=== PATIENT | male | born 1965 | race Caucasian/White ===

== ENCOUNTER 2016-07-19 20:26 | Emergency (ER) | payer SELFPAY ==
--- NOTE | 2016-07-31 21:14 | ER ---
ADMIT: 07/19/2016 RM/LOC: ER [facility] MR#: [id number] [address] [id number] CESAR GOMEZ [address] [place] [address] Emergency Room Report SEX: M AGE: 51 : 1965 DATE: 07/19/2016 ADDENDUM: CHIEF COMPLAINT: Alcohol ingestion. HISTORY OF PRESENT ILLNESS: This is a 51-year-old, who has been sober for the last 6 months and then he fell off a wagon and has been drinking a half gallon of vodka daily for the last 7 days. He wanted to go to [facility], but he was worried that he was too intoxicated to go there. So, he came to the ER. CBC is normal except for hemoglobin of 13.4. Chemistries normal except for potassium of 3.3. His glucose is 150. His EtOH is 237. He is going to be discharged from here and going to [facility]. They said they have a bed available for him. CLINICAL IMPRESSION: Alcoholism, seeks detox. ADAN Parker / Roger Oliva MD / modl JOB #: [id number] CC: Roger Oliva MD, Attending Physician Jaci Ballard MD, Family Physician
== END 2016-07-19 23:00 | disposition home or self-care (01) ==
LOC: ER 20:26
DX: F10.20 Alcohol dependence, uncomplicated (principal); I10 Essential (primary) hypertension; F17.210 Nicotine dependence, cigarettes, uncomplicated; Z79.899 Other long term (current) drug therapy; Z98.890 Other specified postprocedural states

== ENCOUNTER 2016-07-31 10:38 | Inpatient (IN) | payer OTHER ==
[~2016-07-31] VITALS: Ht 172.7 cm; Wt 78.9 kg
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
--- NOTE | ~2016-07-31 | INDIVTXPLN ---
"PATIENT: CESAR GOMEZ | | [facility] UNIT #: [id number] | [address] AGE/SEX: 51 M : 69 | [address] | [place] [address] ADMIT/REG DATE: 07/31/16 | [facility] | Individualized Treatment Plan Date: 08/14/16 Problem Statement/Issue Identified: Client needs to identify relapse warning signs and develop a plan to deal with them as they arise. Goal: Client will learn how to identify relapse triggers and make a plan of how to avoid them. Objectives/Activities to achieve goal: 1. Client is to interview people on how they got into recovery and about relapse triggers, and process it with counselor. Due Date:08/21/16 Complete: Incomplete: 2. Client is to do a collage about his recovery and life and process it with counselor. Due Date:08/21/16 Complete: Incomplete: 3. Client is to write out what One Day at a Time means to him, and process it with counselor. Due Date:08/01/16 Complete: Incomplete: Client signature Date Counselor signature Date Outcome/Measurement of Progress Towards Goal: Counselor's signature Date "
--- NOTE | ~2016-07-31 | INDIVTXPLN ---
"PATIENT: CESAR GOMEZ | | [facility] UNIT #: [id number] | [address] AGE/SEX: 51 M : 69 | [address] | [place] [address] ADMIT/REG DATE: 07/31/16 | ROOM: [facility] LOC: ADTC | ADTC | Individualized Treatment Plan Date: 08/06/16 Problem Statement/Issue Identified: Client needs to get back in touch with basics of recovery as he is relapsed after several treatment attempts, as well as while living in the long-term house. Goal: Client will take time to gain insight to Step 1, which will help him get back into recovery, as well as to learn to reach out to men in recovery and attend AA/NA meetings. Objectives/Activities to achieve goal: 1. Client is to complete the How to Get Started packet and process it with counselor, and selected pages in group. Due Date:08/11/16 Complete: Incomplete: 2. Client is to complete Step 1, process it with counselor and selected pages in group. Due Date:08/14/16 Complete: Incomplete: 3. Client is to attend AA/NA meetings, ask for and get at least 5 names and numbers of men in recovery, and share that list with counselor. Due Date:08/21/16 Complete: Incomplete: Client signature Date Counselor signature Date Outcome/Measurement of Progress Towards Goal: Counselor's signature Date "
--- NOTE | ~2016-07-31 | CLPRLASSUM ---
PATIENT: CESAR GOMEZ | | [facility] UNIT #: [id number] | [address] AGE/SEX: 51 M : 69 | [address] | [place] [address] ADMIT/REG DATE: 07/31/16 | ROOM: [facility] LOC: ADTC | ADTC | Client Problem List/Assessment Summary Date: 08/06/16 Problems identified by the client: Client was living in the [facility], and drank for 5 days. He believed he needed to come back to a treatment program, so he can try to get back in. Problems identified by significant others: Same Client's Strengths: Client identified his strengths as: Honesty, hardworking and loyal. Problem List: T Client needs to get back in touch with the basics of recovery as he relapsed after several treatment attempts, including having 9 years, at one point. T Client does not "reach-out to others for help" and instead continued to use alcohol. T Client needs to identify relapse warning signs and develop a plan to deal with them as they arise. Code Claire: T: to be addressed during course of treatment O: problem noted, expected to resolve itself with abstinence--specific tx plan not required R: problem noted, will be referred upon discharge PRIMARY COUNSELOR: KATIE Howard
--- NOTE | ~2016-07-31 | TXPLANREV ---
"PATIENT: CESAR GOMEZ | | [facility] UNIT #: [id number] | [address] AGE/SEX: 51 M : 69 | [address] | [place] [address] ADMIT/REG DATE: 07/31/16 | [facility] ADTC | Treatment Plan/Staffing Review Date: 08/13/16 Treatment plan was reviewed and determined appropriate as written: Yes Treatment plan was reviewed and the following changes/addition/deletions are necessary: Client has completed Step 1 and will now begin working on relapse prevention. Discharge plans were reviewed and determined appropriate as previously documented: Yes Discharge plans were reviewed and determined to be as follows: Client is waiting to get back into the [facility]. 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 Other pertinent issues discussed during this staffing review include: None at this time. Staff Present: Dina Medley PRIMARY COUNSELOR: KATIE Howard Client Signature Counselor Signature Date Time "
--- NOTE | ~2016-07-31 | TXPLANREV ---
"PATIENT: CESAR GOMEZ | | [facility] UNIT #: [id number] | [address] AGE/SEX: 51 M : 69 | [address] | [place] [address] ADMIT/REG DATE: 07/31/16 | [facility] | Treatment Plan/Staffing Review Date: 08/19/16 Treatment plan was reviewed and determined appropriate as written: Yes Treatment plan was reviewed and the following changes/addition/deletions are necessary: Client is finishing up with his relapse prevention assignments. 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 Other pertinent issues discussed during this staffing review include: None at this time. Staff Present: Dina Medley PRIMARY COUNSELOR: KATIE Howard Client Signature Counselor Signature Date Time "
--- NOTE | 2016-07-31 12:50 | NUR ---
ADMISSION NOTE Client is a 51 y/o, male referred to treatment by [facility] and brought here today from their Crisis Stabilization Unit bu CSU staff. Client had been in the CSU for 12 days. Client resides in [place], most recently at a senior care house. Client states medical allergy to codeine and brings home medications with him; these were packaged for storage at the pharmacy. Client states DOC is alcohol, last used 12 days ago, when client reports drinking around a half-gallon per day for 4-5 days. Client does not anticipate any family group participation from his family. Client was searched, no contraband found. Client did turn in a cell phone and a small pair of scissors, which were place in the locked storage at the tech station. Rights/Responsibilities: Copy given and explained to client. Signed and accepted by client. Client oriented to physical lay out of the ADTC unit, given Big Book and admission packet. A Chalino was assigned. Aj
--- NOTE | 2016-07-31 15:04 | NUR ---
Tech Note: Client partlicipated in light stretching for morning exercise and went on an outdoor walk in the afternoon. Client stated that he is working on, "Relapse Prevention."
--- NOTE | 2016-07-31 15:57 | NUR ---
INITIAL SESSION 1 HR: Clt was oriented to tx plans, schedules and what to expect. He stated he was living at the and went on a 5 day binge. He has bene to SOS tx 3 times in the past couple years and here a few yrs back. He stated he struggles with reading and writing, so heard to do the best he can and we'll get anum the rest.
--- NOTE | 2016-07-31 22:50 | NUR ---
Tech note : Client did not participate in programming as he was finishing his paperwork. He did attend the AA meeting was checked into his room, seen by the and gave his first intro.
--- NOTE | 2016-08-01 05:12 | NUR ---
Bed note : Client was motionless with eyes closed at all bed checks.
--- NOTE | 2016-08-01 10:07 | NUR ---
Tech Notes: Client is working on Getting started
--- NOTE | 2016-08-01 12:13 | NUR ---
PEER REVIEW 22:1/1.5 HR: Client and peers participated in peer review. Client did provide feedback for a couple of the peers reviewed but refused on one, stating that he had not so much as talked to the peer or been around him as client came in to treatment yesterday.
--- NOTE | 2016-08-01 12:47 | NUR ---
Education note: Client attended education by [facility]
--- NOTE | 2016-08-01 14:40 | NUR ---
FAMILY CONTACT: Gilbert's nephew was contacted. He stated gilbert has tons of grief, resentments and anger to work thru, along with hurt and sadness. He stated gilbert's Dad killed himself, then left the ranch to him, of which they lost, then he had 2 women who cheated on him w/ family members, and gilbert has been covering it w/ drugs and alcohol for several yrs. Nephew stated he will participate in family edu.
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
--- NOTE | 2016-08-01 17:34 | NUR ---
SPIRITUaL EDUCATION 1 HR. Today we oriented newcomers and the activity was reading and putting on presentations on portions of TOWARDS SPIRITUALITY.
--- NOTE | 2016-08-01 22:13 | NUR ---
Tech note : Client went for a walk and worked on some crafts. Client celebrated a tech's birthday and attended an onsite NA meeting.
--- NOTE | 2016-08-02 04:54 | NUR ---
Bed note: Client was moitionless with eyes closed at all bed checks.
--- NOTE | 2016-08-02 11:56 | NUR ---
Group 1.5 Hr Rtio 2:20/Topics today were orientating a new client to group rules and goals. Relapse prevention was also a topic. Client shared how he could relateto different relapse triggers and what he needed to do to void that.
--- NOTE | 2016-08-02 14:27 | NUR ---
Tech Note: Client attended Spiritual Enrichment in the morning and went for an outdoor walk in the afternoon. Client stated that he is working on, "How to Get Started in Treatment."
--- NOTE | 2016-08-02 15:49 | NUR ---
Education 1 Hour: Client heard from a recovery speaker who shared his experience, strength and hope.
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
--- NOTE | 2016-08-02 18:30 | NUR ---
Education: 1 Hour. Clients watched Picking up the Pieces for education.
--- NOTE | 2016-08-02 23:14 | NUR ---
tech note: client went on walk for recreation,participated in Guided Meditation & attended onsite AA meeting. SE: AA.
--- NOTE | 2016-08-03 04:06 | NUR ---
Bed note: Client was moitionless with eyes closed at all bed checks.
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
--- NOTE | 2016-08-03 13:00 | NUR ---
PEER REVIEWS 1 HR: Clt participated in peer review process and was able to give open and honest feedback to those receiving a review.
--- NOTE | 2016-08-03 13:26 | NUR ---
Tech Note: Client went on group walk for recreation. Clt is working on Getting Started.
--- NOTE | 2016-08-03 22:59 | NUR ---
TECH NOTE: Client participated in reading guidelines, watched tv/movies. SE: walk
--- NOTE | 2016-08-04 04:46 | NUR ---
BED NOTE: Client was in bed, motionless with eyes closed all three bed checks.
--- NOTE | 2016-08-04 09:21 | NUR ---
IS 1 HR: We discussed past trauma issues, including the suicide of his Dad, then the loss of the family ranch. Clt advised he did EMDR at [facility] so does not think he needs more therapy on it. He stated he spent 9 yrs in recovery and learned acceptance and understanding. What clt primarily wants to work on is stopping his self-sabotaging. He will also be given some type of step 1 work, altho he has a learning disability and struggles with reading and writing.
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
--- NOTE | 2016-08-04 16:27 | NUR ---
Tech Note: Client is working on the Convene and had a visitor.
--- NOTE | 2016-08-04 23:33 | NUR ---
TECH NOTE: Client played Catch Phrase for REC, attended off site AA meeting, and watched TV/movies. SE: visits
--- NOTE | 2016-08-05 04:16 | NUR ---
Bed Note: Clt lay motionless in bed with eyes closed showing no distress at all bed checks.
--- NOTE | 2016-08-05 15:56 | NUR ---
Tech Note: Client participated in Big Book Study and stated that he is working on Step One.
--- NOTE | 2016-08-05 22:36 | NUR ---
Client attended the A.A.Panel and participated in Community [facility]. SE: All Day
--- NOTE | 2016-08-06 03:58 | NUR ---
BED NOTE: Client was in bed, and motionless at all three bed checks except for last check he acknoledged me.
--- NOTE | 2016-08-06 10:03 | NUR ---
Tech notes: Client is working on Step 1.
--- NOTE | 2016-08-06 11:17 | NUR ---
AM Group 1.5hr/ 21:2 Clients all read The Wall an allegory and discussed how it related to the 12 steps/recovery. Each client jenn and shared their wall.
--- NOTE | 2016-08-06 13:59 | NUR ---
Educational note: Client attended speaker for educationCyo
--- NOTE | 2016-08-06 16:00 | NUR ---
RECOVERY 101 1 HR/ Clients all filled out consequences list to look at each chemical they have ever used and how many consequences were experiences with each drug. Many shared what they learned from this and their top 3 consequences, they also discussed early stage symptoms of their addiction. Counselor asked the group what would be a definition that includes all stages and this was discussed as well at stages of Denial, Anger, Compliance/defiance, admittance, acceptance and Surrender.
--- NOTE | 2016-08-06 20:37 | NUR ---
Education: 1 Hour. Client attended lecture on "Adult Children of Alcoholics" presented by staff.
--- NOTE | 2016-08-06 22:52 | NUR ---
Tech Note: Client played a game for rec and attended the on unit N.A.Meeting. SE:_A.A.Panel
--- NOTE | 2016-08-07 04:12 | NUR ---
Bed Note: Client was in bed, and motionless at all three bed checks.
--- NOTE | 2016-08-07 13:07 | NUR ---
Tech Note: Nutritional Services presented information for the 1:00 speaker meeting. Client is working on Step 1.
--- NOTE | 2016-08-07 15:16 | NUR ---
A.M. 1.5 hr res group/ratio 1:10/ Group heard a getting started, a feelings letter, vent letter and a womens journal assignment. This client was attentive but mostly quiet.
--- NOTE | 2016-08-07 16:24 | NUR ---
Relapse Prevention, 05/18, 1.0 hours, Client attended and actively participated in relapse prevention education which focused on top 5 relapse triggers and how to avoid them.
--- NOTE | 2016-08-07 17:32 | NUR ---
Education Note: Topic was "[place] From Shame" presented by Nida.
--- NOTE | 2016-08-07 22:46 | NUR ---
TECH NOTE: Client did crafts/beads for REC and attended on site AA meeting. SE: acceptance to [facility]
--- NOTE | 2016-08-08 04:00 | NUR ---
BED NOTE: Client was in bed, motionless with eyes closed all bed checks.
--- NOTE | 2016-08-08 10:42 | NUR ---
Tech notes: Client is working on Step 1 and mtg with [place]
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
--- NOTE | 2016-08-08 15:59 | NUR ---
Education 1 Hour: Client watched the video, "Marijuana" by Ovidio Vallejo.
--- NOTE | 2016-08-08 16:39 | NUR ---
IS 1 HR: Processed clt's BPS and his How ot Get Started pkts. He struggles with dyslexia, so it was hard to read, but in discussion, learned mart's Dad got poisoned when clt was 9, then committed suicide when clt was 14. He advised he has come to terms w/ it, but it was hard on him, and especially after they lost the family ranch. Mom did go to nursing school and became an RN, until she, too got ill with COPD and , as well. In his HtGS pkt, he identified being happy, sad and mad as a teen, due to his Dad's illness and . Then as an adult when his cheated on him w/ his cousin. Gilbert is working on Step 1.
--- NOTE | 2016-08-08 17:24 | NUR ---
SPIRITUAL EDUCATION; Client's took TOWARD SPIRITUALITY BOOKS again this week and improved their presentations took on new participants to replace those who weren't here this week, and presented their refined skits to those staff available to watch. Excellent presentations!
--- NOTE | 2016-08-08 19:04 | NUR ---
Education 1HR: Clt attended lecture given by counselor on boundaries.
--- NOTE | 2016-08-08 22:03 | NUR ---
Tech note : Client went for a long walk for rec and attended an onsite NA meeting. SE: Meeting with counselor
--- NOTE | 2016-08-09 04:03 | NUR ---
Bed note: Client was in bed motionless, with eyes closed at all bed checks.
--- NOTE | 2016-08-09 11:30 | NUR ---
AM GRP 1.5 HRS, Ratio 1:10/ Clt participated in grp discussion on various topics. The majority of grp was on a male peer who often manipulates the grp. This clt sat mostly quiet for that period of time, then when newcomers shared, he did offer some feedback.
--- NOTE | 2016-08-09 13:49 | NUR ---
FAMILY EDUCATION 3 hrs. Client had no family this night but took part in the discussion on the disease concept and the progression and consequences.
--- NOTE | 2016-08-09 15:18 | NUR ---
Tech Note: Client participated in Spiritual Enrichment in the morning and went for an outdoor walk in the afternoon.client stated that he is wroking on Step One.
--- NOTE | 2016-08-09 15:39 | NUR ---
Education 1 Hour: Client watched the video, "Doing a 4th and 5th Step" by Arcelia Bourgeois.
--- NOTE | 2016-08-09 19:10 | NUR ---
Education 1HR: Clt watched half of video "Pleasures Unwoven" with staff present.
--- NOTE | 2016-08-09 23:00 | NUR ---
Tech Note; Clt played a game for rec, attended GM and onsite AA mtg. SE was all day
--- NOTE | 2016-08-10 04:22 | NUR ---
Bed Note: Clt lay motionless in bed with eyes closed showing no distress at all bed checks.
--- NOTE | 2016-08-10 12:56 | NUR ---
Tech Note: Client is working on Step 1.
--- NOTE | 2016-08-10 13:00 | NUR ---
PEER REVIEWS 1 HR: Clt participated in peer reviews and took a risk to give open and honest feedback to those receiving a review.
--- NOTE | 2016-08-10 13:15 | NUR ---
Morning Group, /12 ratio, 1.5 hours, Client attended and actively participated in group. Client offered feedback to peers.
--- NOTE | 2016-08-10 13:58 | HP ---
ADMIT: 07/31/2016 RM/LOC: [facility] MR#: [id number] [facility] [address] [place] [id number] CESAR GOMEZ [address] [place] [address] History and Physical SEX: M AGE: 51 : 1965 DATE OF SERVICE: CHIEF COMPLAINT/CLINICAL HISTORY: Alcohol and drug problem with recent relapse on alcohol and meth after having completed the [facility] three times in the last nine months. The patient notes that this is his second time in treatment here at the [facility]. He notes, he initially came to treatment in September of 2002. He was in treatment at the [facility] for 10/08/2002 through 10/29/2002. He completed treatment and then was sober for over 8 years. While sober, he worked the program well noting that he was actively involved in AA. Unfortunately, in February of 2011, his sponsor relapsed, shortly thereafter, he relapsed after he had some serious marital problems leading to divorce. The stress of his marital problems and divorce pushed him back into his pattern of drinking. The patient notes that he has had only brief periods of sobriety in the last 5 years since that relapse in February 2011. Recently, he has been at the [facility] in [place], and has completed treatment three times. He initially went in to treatment there in August of 2015, he completed treatment, and then had about 3 months of sobriety. He then went back to treatment in October of 2015, and completed treatment in November following which he had only one month of sobriety. Most recently, he completed the treatment program in March of 2016 spending 30 days at the [facility] program in February to March. Once he got out, he had 4 months of sobriety. He is recently relapsing. Relapsing on both alcohol and meth. He had essentially got bottom, was living out of his car, was homeless, and unemployed. He ultimately contacted a cousin of his who is in the program and recently completed treatment here to help get him into the [facility] on 07/20/2016. He has been going through detox at [facility] since 07/20. He comes to treatment now voluntarily noting that his drinking has been out of control since he relapsed five years ago in February of 2011. He notes that alcohol is his drug of choice. He first started drinking at age 14. He was drinking regularly on a daily basis by his late teens. He progressed to the point that he usually drinks up to a half a gallon of hard liquor a day. His preferred beverages whiskey. He would also drink Tequila or [place] drinking to the point that he either blacks out or passes out each day. He notes that he really does not have a second drug of choice. His drug of choice is alcohol. He notes that if marijuana is around and he is intoxicated, he will smoke a bowl or a joint. He notes he may use pot two or three times a year, but never seek it out, just uses it if it is available when he is drunk. He notes that he started using meth at about age 48 and has used it a few times. He notes since he first used three years ago, he has probable use meth 9 or 10 times usually snorting it, once again while drunk and someone offers it to him so that he can continue to drink. He denies any other significant drug use. He notes that this is his sixth time in treatment, but only the second time he has been here at the [facility]. Patient notes that he wants to get clean and sober and the 8 years of sobriety he had from 2002 to 2010 were the best years of his adult life. PAST MEDICAL HISTORY: Recent hospitalizations: He has noted [facility] [place] [facility]. He has had no other recent hospitalizations. He does note that he was hospitalized in 2002 ADMIT: 07/31/2016 RM/LOC: [facility] MR#: [id number] [address] [phone] CESAR GOMEZ [address] [place] [phone] History and Physical SEX: M AGE: 51 : 1965 with a serious hand injury, got his hand caught in an auger and he ended up losing his right middle finger, this occurred on 08/20/2002. He had Orthopedic hand surgery by Dr. Thao to save 2 of the other fingers on that hand. He has had no other recent surgeries or hospitalization. PREVIOUS OPERATIONS: Orthopedic hand surgery in July of 2002. CURRENT MEDICATIONS: The patient's current medications include. 1. Lisinopril 20 mg daily for hypertension. 2. Zoloft 100 mg daily for depression. He was started on this while at the [facility]. 3. Trazodone 50 mg 1 at bedtime for sleep. 4. ProAir HFA 2 puffs every 3 to 4 hours p.r.n. for shortness of breath or cough. 5. Ibuprofen 200 mg 2 tablets every 6 hours for pain. ALLERGIES: PATIENT IS ALLERGIC TO CODEINE. MEDICAL ILLNESSES: The patient does have a history of COPD related to his heavy smoking. He is a one pack-a-day smoker and has smoked since his teen. Does note he gets bronchitis and pneumonia easily. Also, he had a history of hypertension. Denies any other significant chronic medical problems other than for his depression. SOCIAL HISTORY: The patient has been once. He has been now for almost 6 years. He has lived alone for the past 6 years. 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 He is currently homeless. He had been staying at the [facility] after getting out of the [facility] program in March of 2016, but when he relapsed, he was kicked out of the [facility] and was living in his car up until the time he went to the [facility]. FAMILY HISTORY: The patient notes that his father of suicide. His mother of complications related to COPD. He notes that he has an older sister and two younger brothers. He notes his sister has a history of prescription drug abuse. His paternal uncle is an alcoholic. He has multiple cousins on both sides of his family they are alcoholics. He is unaware of any other significant substance abuse issues in his family. REVIEW OF SYSTEMS: CONSTITUTIONAL: No fever, no chills. Appetite is good. Weight stable. HEENT: No complaints at this time. PULMONARY: Chronic cough, history of COPD, frequent episodes of pneumonia as well as bronchitis. CARDIAC: No significant chest pain or angina. No history of coronary artery disease. History of hypertension. ADMIT: 07/31/2016 RM/LOC: [facility] MR#: [id number] [address] [place] [phone] CESAR GOMEZ [address] [place] [address] History and Physical SEX: M AGE: 51 : 1965 GASTROINTESTINAL: No significant GERD symptoms, or gas symptoms, or gastritis. He does have some chronic dyspepsia when drinking heavily. No recent blood in the stools. GENITOURINARY: No voiding symptoms. MUSCULOSKELETAL: Loss of function in his right hand due to the previous hand injury with some chronic pain in the right hand as well. NEUROLOGIC: No history of strokes, seizures, or TIAs. ENDOCRINE: No history of diabetes. Remainder of review of systems is negative. PHYSICAL EXAMINATION: VITAL SIGNS: Temperature is 97.3, pulse is 79, respirations 17, blood pressure 153/93. Height 5 feet 8 inches. Weight is 171 pounds. GENERAL: The patient is a 51-year-old male, who appears his stated age. He is in no acute distress. He is oriented x3. ENT: Exam today is unremarkable. Pupils are equal and reactive. Extraocular movements are intact. Sclerae nonicteric. Nose and throat noninflamed. Dentition is in good repair. NECK: Supple. Thyroid not enlarged. No neck vein distention. LUNGS: Noted to have some coarse breath sounds with some upper airway rhonchi. No wheezes or rales. HEART: Regular rhythm without murmur. ABDOMEN: Soft, nontender. Bowel sounds normoactive. No masses or organomegaly. GENITALIA: Normal male. EXTREMITIES: Reveal changes of the right hand with amputation of the right middle finger with some weakness in that right hand. Lower extremities are unremarkable. No clubbing or cyanosis. No peripheral edema. NEUROLOGIC: He is intact with no focal deficit. Balance and gait are normal. INTEGUMENT: No rashes or worrisome skin lesions. MENTAL STATUS EXAMINATION: He is pleasant, cooperative. Affect is appropriate. No bizarre ideation. No delusions. He admits to feelings of depression, isolation, hopelessness, and loneliness. He denies any suicidal thoughts at this time. He is oriented x3. He appears to be of average intelligence. His memory is intact. Insight is limited. Judgment is guarded. ASSESSMENT: At the time of admission: 1. Alcohol use disorder, severe. 2. Cannabis use disorder, mild. 3. Methamphetamine/stimulant use disorder, moderate. 4. Major depressive disorder, moderate, recurrent. 5. Tobacco use disorder. ADMIT: 07/31/2016 RM/LOC: AEvangelista [facility] MR#: [id number] [address] [place] [phone] CESAR GOMEZ [address] [place] [address] History and Physical SEX: M AGE: 51 : 1965 6. Chronic obstructive pulmonary disease. 7. Hypertension. 8. Status post traumatic right hand injury with subsequent right hand weakness. PLAN: Admit the patient to the residential care program with a tentative discharge date of 08/28/2016. Upon completion of treatment, the patient would like to return to the [facility]. He recognizes the importance of being in a sober living community to help maintain his long-term sobriety. He also recognizes the importance of his active participation in AA. He will need ongoing mental health counseling for management of his psychotropic medications as well. Ru Robles MD/ dimitri JOB #: [id number] CC: Ru Robles, Attending Physician FAMILY PHYSICIAN, Family Physician
--- NOTE | 2016-08-10 15:30 | NUR ---
Education Note: Client watched 2nd half of Pleasure Unwoven.
--- NOTE | 2016-08-10 20:29 | NUR ---
med note: client complained of headache=pain level 3 motrin 400 gigven
--- NOTE | 2016-08-10 22:11 | NUR ---
Tech note : Client talked on the phone, watched tv and played games with peers.
--- NOTE | 2016-08-11 04:00 | NUR ---
Bed note: Client was in bed with eyes closed and no distress at all bed checks.
--- NOTE | 2016-08-11 11:56 | NUR ---
IS 1 HR: Processed clt's Step 1. He did a thorough job on it, identifying how his drinking was unmanageable once he took that first drink. He also was able to see how he has some sober unmanageability to work on, which includes working too much, being passive, OCD, taking advantage of women wanting an older man (Father figure) in their lives, perfectionism. He is to process this in grp.
--- NOTE | 2016-08-11 16:23 | NUR ---
Tech Note: Client attended N.A.Panel and is working on Step 1. Client had an appointment with counselor also.
--- NOTE | 2016-08-11 21:29 | NUR ---
Tech note: Client worked on beaded projects or watched sports for rec, walked to AA meeting SE:teena w/counselor
--- NOTE | 2016-08-12 04:05 | NUR ---
Bed note: Client was in bed with eyes closed with no distress at all bed checks
--- NOTE | 2016-08-12 16:22 | NUR ---
Tech Note: Client stated that he is working on, "Relapse Prevention." Client received a visitor.
--- NOTE | 2016-08-12 22:31 | NUR ---
tech note: Client attended onsite AA Panel & participated in Community Clean. Client watched tv. SE: visits.
--- NOTE | 2016-08-13 04:28 | NUR ---
tech note: client was motionless in no distress at all bed checks.
--- NOTE | 2016-08-13 10:16 | NUR ---
Tech Notes: Client is working on Relapse Prevention
--- NOTE | 2016-08-13 11:02 | NUR ---
Education Note: Client watched video for education today.
--- NOTE | 2016-08-13 12:43 | NUR ---
Morning Group, 05/10, 1.5 hours, Client attended and actively participated in group. Client was able to share his Getting Started Packet and his Step 1.
--- NOTE | 2016-08-13 19:13 | NUR ---
Education: 1 Hour. Client attended "Communications" lecture presented by staff.
--- NOTE | 2016-08-13 21:00 | NUR ---
FAMILY EDUCATION 3 HRS., GROUP 2 HRS. 1:6 Client attended alone and took part in the discussion on the family roles, codependency and detachment. 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 He denies alcoholism in his family. He shared that his ex- was also alcoholic. Client is also noted to use humor as a defense especially in group when he appeared uncomfortable. Client stated he is not writing feelings letters. Suggested he could write to his parents, ex- or even himself.
--- NOTE | 2016-08-13 23:17 | NUR ---
Client attended N.A.Meeting and had Family SE: Family
--- NOTE | 2016-08-14 04:20 | NUR ---
Bed note: Client was in bed with eyes closed with no distress at all bed checks
--- NOTE | 2016-08-14 15:39 | NUR ---
Tech Note: Client participated in light stretching for monring exercise and went for an outdoor walk in the afternoon. Client stated that he is working on, "Relapse Prevention."
--- NOTE | 2016-08-14 15:57 | NUR ---
AKam res group 1 hr/ratio 1:9/ Group heard feelings letters and a step one. Discussed how addiction has affected others and how we can turn things around. This client was quiet the whole group.
--- NOTE | 2016-08-14 17:11 | NUR ---
Relapse Prevention, 05/18, 1.0 hours, Client attended and actively participated in relapse prevention education which focused on high risk situations.
--- NOTE | 2016-08-14 19:21 | NUR ---
Education note: 1 hour watched video "enabler".
--- NOTE | 2016-08-14 19:26 | NUR ---
education note: 1 hour lecture by [facility] on hiv/aid/std. plus clients wwere tested for HIV.
--- NOTE | 2016-08-14 22:05 | NUR ---
Tech note: Client went for a long walk for rec, participated in guided meditation and attended an onsite AA meeting.
--- NOTE | 2016-08-15 05:27 | NUR ---
Bed note : Client was in bed with eyes closed and no movement at all bed checks.
--- NOTE | 2016-08-15 13:21 | NUR ---
Tech Note: Outside speaker Krystian Benoit spoke at 1300. Client attended and is working on Relapse Prevention.
--- NOTE | 2016-08-15 16:48 | NUR ---
IS 1 HR: Gilbert shared his paper on what ONe Day at a Time means to him. He stated it means every day is just one day and a person needs to take things one day at a time if they want to stay sober, because the past is gone and tomorrow isn't here yet. We discussed why he often sabotages himself and drinks, and he isn't sure, as he is more of a perfectionist, so tries to do things perfectly. He heard to have a sponsor before he leaves tx.
--- NOTE | 2016-08-15 17:17 | NUR ---
SPIRITUAL EDUCATION 1 HR. Topics today were clarifying the differences between spirituality and latter day, and playing the spiritual challenge game where they are asked thought provoking open ended questions. It is meant to inspire spiritual line of thought.
--- NOTE | 2016-08-15 22:35 | NUR ---
Tech Note : Client participated in rec by playing catch phrase and attended an onsite NA meeting.
--- NOTE | 2016-08-15 23:34 | NUR ---
Education: 1 Hour. Client attended "Disease Concept" presented by counselor.
--- NOTE | 2016-08-16 05:33 | NUR ---
Bed Note: Client was motionless with eyes closed at all bed checks except the last, he was yp useing the restroom.
--- NOTE | 2016-08-16 10:36 | NUR ---
Tech Note: Client participated in light stretching for morning exercise. Client stated that he is working on, "Relapse Prevention."
--- NOTE | 2016-08-16 13:48 | NUR ---
PEER REVIEWS 1 HR: Clt participated in peer reviews and took a risk to give open and honest feedback to those receiving a review. The last half hour of group clients talked about loved ones and dying.
--- NOTE | 2016-08-16 15:46 | NUR ---
Education 1 Hour: Client heard from a member of the recovery community who shared his experience, strength and hope.
--- NOTE | 2016-08-16 16:32 | NUR ---
Step Education 1 hr/ Focus was on step 12 "having had a spiritual awakening", each person completed a set of questions on paper and then we discussed. This client participated.
--- NOTE | 2016-08-16 19:41 | NUR ---
Tech note: client was off the unit for [employer] banquet and speaker event
--- NOTE | 2016-08-17 13:39 | NUR ---
Tech Note: Client with with group on an outdoor walk. Client is working on Relapse Prevention.
--- NOTE | 2016-08-17 14:01 | NUR ---
Group 1.5 Hr Ratio 1:10/Topics today were orientating a new member to group rules and goals, a GS packet and a getting started packet. Client shared how he could relate to what peers were sharing from assignments and issues.
--- NOTE | 2016-08-17 15:58 | NUR ---
Education Note: Client watched "How to Sabotage Your Treatment"
--- NOTE | 2016-08-17 16:34 | NUR ---
PEER REVIEWS 1.0 HR: Clt participated in peer reviews and took a risk to give open and honest feedback to those receiving a review.
--- NOTE | 2016-08-17 22:52 | NUR ---
TECH NOTE: Client participated in reading guidelines, watched tv/movies. SE: TV
--- NOTE | 2016-08-18 04:02 | NUR ---
Bed Note: Clt lay motionless in bed with eyes closed showing no distress at all bed checks.
--- NOTE | 2016-08-18 13:48 | NUR ---
IS 1 HR: Gilbert heard the [facility] called and wants to come do a screening with him, so we did call and leave a message letting them know they can come on Saturday. Rafat heard they have an opening, so he's hoping he will get it. 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 His insides can match his outsides, if he continues to work a program. He is to interview 3 people in recovery and has an idea of who they are, and he plans to ask a juaquin from [place] to be his sponsor.
--- NOTE | 2016-08-18 14:59 | NUR ---
Tech Note: Client had appt with his counselor and is working on Relapse Prevention.
--- NOTE | 2016-08-18 22:52 | NUR ---
TECH NOTE: Client played a game for REC, attended off site AA meeting, watched TV/movies SE: discharge
--- NOTE | 2016-08-19 04:45 | NUR ---
Bed Note: Clt lay motionless in bed with eyes closed showing no distress at all bed checks.
--- NOTE | 2016-08-19 15:16 | NUR ---
Tech Note: Client participated in [employer] and stated that he is working on, "Relapse Prevention."
--- NOTE | 2016-08-19 16:11 | NUR ---
Medication Note: Client took prn ibuprophen for H/A rated at 4.
--- NOTE | 2016-08-19 22:49 | NUR ---
Tech Note: Client attended A.A.Panel and participated in community clean. SE:TV
--- NOTE | 2016-08-19 22:52 | NUR ---
Tech Note: Client attended A.A.Panel and participated in community clean. Client had high blood pressure! B/P taken twice and very high both occasions. SE: Tv
--- NOTE | 2016-08-20 04:49 | NUR ---
Client was motionless with eyes closed at all bed checks.
--- NOTE | 2016-08-20 10:18 | NUR ---
Tech notes: Client is working on Relapse prevention
--- NOTE | 2016-08-20 15:45 | NUR ---
Morning Group, 1.5 hours, 05/19 Clients all participated in 2 family sculptures with role-playing, feedback, and how they related.
--- NOTE | 2016-08-20 16:04 | NUR ---
RECOVERY EDUCATION 1 HR. Todays topic was on denial; good, bad, and levels, life problems being 85 percent of recovery, and distorted thinking patterns that can keep us stuck.
--- NOTE | 2016-08-20 16:29 | NUR ---
Education note: Client watched video "[address] on [address]"
--- NOTE | 2016-08-20 18:41 | NUR ---
Education: 1 Hour. Client attended "Feelings" lecture given by staff.
--- NOTE | 2016-08-20 22:02 | NUR ---
Tech note: Client participated in rec by playing [facility] outside. Client attended an onsite NA meeting.
--- NOTE | 2016-08-21 04:13 | NUR ---
BED NOTE: client was in bed, motionless with eyes closed all three bed checks.
--- NOTE | 2016-08-21 11:30 | NUR ---
GROUP 1.5 HRS. 1:9 Clients oriented new peer to purpose and rules of group. This client was confronted on appearing to be asleep-which he denied. He was advised to stand up if needed, but he did not do so. Client was not involved in group discussion.
--- NOTE | 2016-08-21 16:14 | NUR ---
Relapse Prevention, 05/16 ratio, 1.0 hours, Client attended and actively participated in relapse prevention education which focused on personal reactions to high risk situtations such as personal reactions vs. personal responses, addictive thinking, irresponsible thinking, addictive behavior, irresponsible behavior, instant gratification, and emotional consequences to thoughts and actions.
--- NOTE | 2016-08-21 16:28 | NUR ---
Tech Note: Client listened to speaker Calvin share his experience, strength and hope. Client is working on Relapse Prevention.
--- NOTE | 2016-08-21 19:16 | NUR ---
Education : 1 hour lecture given by counselor on feelings.
--- NOTE | 2016-08-21 22:09 | NUR ---
Tech note: Client played catchphrase for rec, participated in guided meditation and attended AA meeting. SE:peer going to ER
--- NOTE | 2016-08-22 04:18 | NUR ---
Bed note: client was in bed with eyes closed and no distress at all bed checks.
--- NOTE | 2016-08-22 10:01 | NUR ---
Tech notes: Client is working on Relapse prevention
--- NOTE | 2016-08-22 11:30 | NUR ---
GROUP 1.5 HRS. 1:10 Group discussion included feelings letter to mom, HOW TO GET STARTED IN TREATMENT and step 1 ASSIGNMENTS. This client sat quiet and was not actively involved in group discussion.
--- NOTE | 2016-08-22 13:26 | NUR ---
Education note: Client watched video
--- NOTE | 2016-08-22 16:18 | NUR ---
SPIRITUAL EDUCATION 1 HR. Todays topic was the ADDICTIVE SELF vs. SPIRITUAL SELF. We held discussion on who we are in our addiction vs who we are in recovery and contrasted the two. This client smugly put on the board ME under addictive self and under spiritual self ME. When confronted he refused to acknowledge that his drinking changed him at all.
--- NOTE | 2016-08-22 18:31 | NUR ---
Education: 1 hour lecture on self esteem given by counselor
--- NOTE | 2016-08-22 22:44 | NUR ---
Client did beads for rec and attended N.A.Meeting. SE: All Day
--- NOTE | 2016-08-23 03:58 | NUR ---
Bed note: client was in bed with eyes closed and no distress at all bed checks.
--- NOTE | 2016-08-23 11:44 | NUR ---
Group 1.5 Hr Ratio 1:10/Topics today were a Getting Started packet, a Relapse prevention and a Self worth packet. Client shared a little bit how he could relate but was mostly quiet.
--- NOTE | 2016-08-23 15:21 | NUR ---
Tech Note: Client participated in Spiritual Enrichment in the morning and went for an outdoor walk after lunch. Client stated that he is working on, "Relapse Prevention" and drawing a picture for spirituality.
--- NOTE | 2016-08-23 15:45 | NUR ---
IS 1 HR: Gilbert shared that he got his assignments all done, but didn't do them very thorough, due to not being able to read or write them. He jenn pictures about how he feels on the outside of his house, and who else sees him that way, and then on the inside how he feels. He stated he made someone mad yesterday but has learned the importance of making amends immediately. Clt did his continued care plan and we called and made arrangements to go to be picked up by the [facility] on Saturday at 10:00.
--- NOTE | 2016-08-23 16:13 | NUR ---
Education 1 Hour: Client heard a presentation on cross addiction.
--- NOTE | 2016-08-23 17:30 | NUR ---
Step ed. 1 hr/ focus was on step one and powerlessness. Each person answered a set of questions on paper and then we discussed out loud. This client participated.
--- NOTE | 2016-08-23 22:54 | NUR ---
TECH NOTE: Client did [employer] bookmarks for REC, participated in guided meditation, and attended AA meeting. SE: getting chip
--- NOTE | 2016-08-24 01:19 | NUR ---
1 HR EDUCATION: Client watched a video "Say Yes to Life" by Father Bill Willson
--- NOTE | 2016-08-24 04:39 | NUR ---
Bed Note: CLt lay motionless in bed with eyes closed showing no distress at all bed checks.
--- NOTE | 2016-08-24 10:25 | NUR ---
FINAL SESSION 1 HR: Gilbert shared that he has learned more from video's than anything, as he's been to tx enough times he knew what to do before he did it. He holds onto the 9 yrs he had sober, so heard he will never get those 9 yrs back, but he can have better and more years in the future. Rafat shared he is looking forward to going to the [facility] and back to work. Gilbert was given a coin and we did his Continued Care plan and he was completed thru tx.
--- NOTE | 2016-08-24 13:41 | NUR ---
Morning Group, 05/09, 1.5 hours, Client attended and actively participated in group session. Client mostly listened as his peers shared.
--- NOTE | 2016-08-24 14:58 | NUR ---
PEER REVIEWS 1.5 HRS: Clrossy participated in peer review process and received his own. 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 He felt glad, afraid and sad.
--- NOTE | 2016-08-24 16:11 | NUR ---
Tech Note: Clt watched "Relapse" for afternoon video. Clt is working on reading the Big Book.
--- NOTE | 2016-08-24 22:35 | NUR ---
Tech note: Client watched tv and movies.
--- NOTE | 2016-08-25 05:17 | NUR ---
Bed note : Client was in bed motionless with eyes close at all bed checks.
--- NOTE | 2016-08-25 15:26 | NUR ---
Tech Note: Client attended A.A.Meeting at [facility] and [place] and then helped with the clubhouse cleaning, ate lunch, and listened to a speaker. Client is working on BB
--- NOTE | 2016-08-25 18:29 | NUR ---
tech note: client c/o level 4 headache @ 0660,motrin 400 mg was given.
--- NOTE | 2016-08-25 20:38 | NUR ---
tech note: Client played a game for recreation & attended offsite AA meeting. SE: CAROLE.
--- NOTE | 2016-08-26 05:19 | NUR ---
Bed note: Client was in bed motionless with eyes closed at all bed checks.
--- NOTE | 2016-08-26 16:17 | NUR ---
TECH NOTE: Client participated in Chapter 5 of Big Book study, attended study time, and watched tv/movies
--- NOTE | 2016-08-26 22:50 | NUR ---
tech note: client attended AA Panel & participated in Community Clean. Client was complimented for his pleasant disposition. SE: All Day.
--- NOTE | 2016-08-27 04:33 | NUR ---
Bed Note: Clt lay motionless in bed with eyes closed showing no dis-tress at all bed checks.
--- NOTE | 2016-08-27 10:18 | NUR ---
DISCHARGE NOTE Client left tx with ride to the [facility], all personal belongings were sent with. Discharge instruction gone over and copy given.
--- NOTE | 2016-10-01 12:58 | DS ---
ADMIT: 07/31/2016 RM/LOC: Vania [facility] MR#: [id number] [id number] [id number] CESAR GOMEZ [address] [place] [address] General Discharge Summary SEX: M AGE: 51 : 1965 ADMISSION DATE: 07/31/2016 DISCHARGE DATE: 08/27/2016 ADMITTING DIAGNOSIS: As per history and physical. FINAL DIAGNOSES: As follows: 1. Alcohol use disorder, severe. 2. Cannabis use disorder, mild. 3. Methamphetamine/stimulant use disorder, moderate. 4. Major depressive disorder, recurrent. 5. Tobacco use disorder. 6. Chronic obstructive pulmonary disease. 7. Hypertension. 8. Past history of traumatic right hand injury with subsequent right hand weakness and dysfunction. COMPLICATIONS: None. OPERATIONS: None. CLINICAL HISTORY: The patient is a 51-year-old, white male, admitted to the residential care program with the [facility] for treatment of his alcohol use disorder and methamphetamine use disorder. The patient comes to treatment after recent relapse. The patient has gone through the [facility] program 3 times in the last 9 months. Once again, comes to treatment after recent relapse. For further details of his clinical history as well as his past medical history and pertinent findings on physical exam, please see dictated history and physical. LABORATORY AND X-RAY SUMMARY FROM THIS ADMISSION: The patient did have chemistry panel performed on 08/21/2016, which showed a sodium of 141, potassium 4.5, BUN 23, creatinine 1.0, blood sugar 72, calculated GFR 88. HOSPITAL COURSE: The patient was admitted to the residential care program and assigned to his primary counselor, Elmira Villasenor. He remained in the treatment program from 07/31/2016 until 08/27/2016. While in treatment, he participated in individual therapy and group therapy, he was given the educational series on substance abuse and worked on many of these assignments. While in treatment, he did not participate in the family portion of the program and had no family participation. While in treatment, he was not accepting of his substance abuse problem. While in treatment, he struggled doing assignments due to his dyslexia. Written assignments were very difficult for him. He worked on relapse prevention and identifying obstacles to his sobriety. The patient's primary purpose for coming to treatment was so that he could get back into the [facility]. He struggled in individual sessions and group sessions, not being willing to work on much of anything stating that he had already worked on all these issues while he was in treatment the 3 previous times over the last 9 months. He worked on relapse prevention and identifying obstacles to sobriety. He was able to complete step 1 of AA during this level ADMIT: 07/31/2016 RM/LOC: KateyEvangelista [facility] MR#: [id number] [id number] [id number] [address]OMEZ [address] [place] [address] General Discharge Summary SEX: M AGE: 51 : 1965 of care. At times, he seemed to laugh and joke about everything and did not have a serious attitude towards treatment. It was felt that he gained very little as he progressed through the treatment process. He initially was discharged after completing his residential treatment goals. It was recommended that he go directly to a residential house and he was accepted into the [facility]. He is to reside there for 6 to 9 months until dismissed with staff approval. He was encouraged to attend 5 to 7 AA or NA meetings per week and maintain regular contact with his AA sponsor. CONDITION AT DISCHARGE: Minimally changed. PROGNOSIS: [place] to be poor in view of the patient's attitude. DISCHARGE MEDICATIONS: His medications at discharge were to include: 1. Lisinopril 20 mg two tablets once daily. 2. Norvasc 5 mg daily. 3. Lopressor 100 mg b.i.d. 4. Zoloft 100 mg at bedtime. 5. Trazodone 50 mg at bedtime. 6. Multivitamin 1 daily. 7. Thiamine 100 mg daily. 8. ProAir two puffs every 4 hours p.r.n. shortness of breath. Ru Robles MD/ dimitri JOB #: [id number] CC: Ru Robles MD, Attending Physician FAMILY PHYSICIAN, Family Physician
== END 2016-08-27 10:19 | disposition home or self-care (01) | DRG 895 ==
LOC: ADTC 10:38
PROVIDERS: ADMIT Family Medicine
PROC: HZ34ZZZ Individual Counseling for Substance Abuse Treatment, Interpersonal (ICD-10-PCS; principal; 2016-07-31)
PROC: HZ43ZZZ Group Counseling for Substance Abuse Treatment, 12-Step (ICD-10-PCS; principal; 2016-07-31)
DX: F10.20 Alcohol dependence, uncomplicated (principal); F33.9 Major depressive disorder, recurrent, unspecified; I10 Essential (primary) hypertension; F15.20 Other stimulant dependence, uncomplicated; F12.10 Cannabis abuse, uncomplicated; R53.1 Weakness; F17.210 Nicotine dependence, cigarettes, uncomplicated; J44.9 Chronic obstructive pulmonary disease, unspecified; Z63.72 Alcoholism and drug addiction in family; Z59.0 Homelessness; Z87.828 Personal history of other (healed) physical injury and trauma